=== PATIENT | female | born 1965 | race Caucasian/White ===

== ENCOUNTER 2018-01-19 07:33 | Inpatient (IN) | payer OTHER ==
[~2018-01-19 07:33] MED LIST: EPHEDrine SULFATE 50 MG/5 ML SYG
[2018-01-19] MEDS: SOD CHLORIDE 0.9% 1,000 ML IV ×2 (09:00→15:28)
[2018-01-19] MEDS: CEFAZOLIN 2 GM/50 ML (PMX) 50 ML IVPB (09:00)
[2018-01-19] MEDS: INSULIN ASPART [NOVOLOG] 3 ML PEN SC ×6 (09:53→21:11)
[2018-01-19 09:56] LABS: ADD MAN DIFF? NO
[2018-01-19 09:57] LABS: BASOPHILS % 0.4 % (0.0-2.0); EOSINOPHILS % 0.4 % (0.0-7.0); HEMATOCRIT 40.3 % (37.0-47.0); HEMOGLOBIN 13.9 g/dl (12.0-16.0); LYMPHOCYTES # 0.9 10^3/ul (0.8-2.9); LYMPHOCYTES % 19.2 % (15.0-51.0); MEAN CORPUSCULAR HEMOGLOBIN 30.8 pg (29.0-33.0); MEAN CORPUSCULAR HGB CONC 34.5 g/dl (32.0-37.0); MEAN CORPUSCULAR VOLUME 89.4 fl (82.0-101.0); MEAN PLATELET VOLUME 10.7 fl (7.4-10.4); MONOCYTE # 0.4 10^3/ul (0.3-0.9); NEUTROPHIL # 3.2 10^3/ul (1.6-7.5); NEUTROPHILS % 71.8 % (39.0-77.0); PLATELET COUNT 216 10^3/UL (140-415); RED BLOOD COUNT 4.51 10^6/ul (4.20-5.40); RED CELL DISTRIBUTION WIDTH 11.9 % (11.5-14.5)
[2018-01-19 09:57] LABS: WHITE BLOOD COUNT 4.5 10^3/ul (4.8-10.8)
[2018-01-19] MEDS ORDERED: GLUCAGON 1 MG INJ IM (10:00)
[2018-01-19] MEDS ORDERED: GLUCOSE GEL 15 GRAM TUBE PO ×2 (10:00)
[2018-01-19] MEDS ORDERED: GLUCOSE GEL 15 GRAM TUBE BUCCAL (10:00)
[2018-01-19] MEDS ORDERED: DEXTROSE 50% 50 ML SYRINGE IV ×2 (10:00)
[2018-01-19 10:17] LABS: PROTIME 12.2 Sec (11.9-14.9)
[2018-01-19 10:18] LABS: PARTIAL THROMBOPLASTIN TIME 33.3 Sec (25.0-35.0)
[2018-01-19 10:22] LABS: ALANINE AMINOTRANSFERASE 22 IU/L (13-69); ALBUMIN 3.9 g/dl (3.3-4.9); ALBUMIN/GLOBULIN RATIO 1.14; ALKALINE PHOSPHATASE 115 IU/L (42-121); ANION GAP 19 (8-16); ASPARTATE AMINO TRANSFERASE 19 IU/L (15-46); BILIRUBIN,INDIRECT 0.4 mg/dl (0-1.1); BILIRUBIN,TOTAL 0.4 mg/dl (0.2-1.3); CARBON DIOXIDE 29 mmol/L (21-31); CHLORIDE 99 mmol/L (97-110); GLUCOSE 300 mg/dl (70-220); TOTAL PROTEIN 7.3 g/dl (6.1-8.1)
[2018-01-19 10:29] LABS: BLOOD UREA NITROGEN 13 mg/dl (7-20); CALCIUM 9.3 mg/dl (8.4-10.2); CREATININE 0.57 mg/dl (0.44-1.00); POTASSIUM 4.5 mmol/L (3.5-5.1); SODIUM 142 mmol/L (135-144)
[2018-01-19] MEDS ORDERED: CEFAZOLIN 1 GM INJ (11:48)
[2018-01-19] MEDS ORDERED: PROPOFOL 20 ML (11:48)
[2018-01-19] MEDS ORDERED: ROCURONIUM 50 MG INJ (11:48)
[2018-01-19] MEDS ORDERED: MIDAZOLAM 1 MG/ML 2 ML INJ (11:48)
[2018-01-19] MEDS ORDERED: FENTAnyl 50 MCG/ML VIAL ×2 (11:48→12:50)
[2018-01-19] MEDS ORDERED: PHENYLephrine (100 MCG/ML) 5ML SYG (12:46)
[2018-01-19] MEDS ORDERED: METOCLOPRAMIDE 10 MG INJ (12:48)
[2018-01-19] MEDS ORDERED: DEXAMETHASONE 4 MG/ML 1 ML INJ (12:48)
[2018-01-19] MEDS ORDERED: KETOROLAC 30 MG INJ (12:48)
[2018-01-19] MEDS ORDERED: ONDANSETRON 4 MG INJ (12:48)
[2018-01-19] MEDS ORDERED: SUGAMMADEX SODIUM 200 MG/2 ML VIAL IV (12:49)
[2018-01-19] MEDS ORDERED: HYDROmorphONE (0.2 MG/ML) 10ML SYG IV ×3 (13:08→13:30)
[2018-01-19] MEDS: D5W-0.45 NACL + KCL 20 MEQ 1,000 ML IV (13:20)
[2018-01-19] MEDS ORDERED: EPHEDrine SULFATE 50 MG/5 ML SYG IV (13:30)
[2018-01-19] MEDS ORDERED: LABETALOL HCL 20MG INJ IV (13:30)
[2018-01-19] MEDS ORDERED: FENTAnyl 50 MCG/ML VIAL IV ×3 (13:30)
[2018-01-19] MEDS ORDERED: MEPERIDINE 25 MG INJ IV (13:30)
[2018-01-19] MEDS ORDERED: morphine 2 MG INJ IV (13:30)
[2018-01-19] MEDS ORDERED: DIPHENHYDRAMINE 50 MG INJ IV (13:30)
[2018-01-19] MEDS ORDERED: hydrALAzine 20 MG INJ IV (13:30)
[2018-01-19] MEDS ORDERED: METOCLOPRAMIDE 10 MG INJ IV (13:30)
[2018-01-19] MEDS ORDERED: OXYCODONE/ACETAMINOPHEN (5/325) TAB PO ×2 (13:30)
[2018-01-19] MEDS ORDERED: ACETAMINOPHEN 1000MG/100ML IV 100 ML IVPB (13:30)
[2018-01-19] MEDS: HYDROmorphONE (0.2 MG/ML) 10ML SYG IV ×2 (13:41→13:51)
[2018-01-19] MEDS: ONDANSETRON 4 MG INJ IV (13:59)
[2018-01-19] MEDS: INSULIN GLARGINE [LANtus] 3 ML PEN SC (21:08)
[2018-01-19] MEDS: morphine 2 MG INJ IV (21:13)
[2018-01-20] MEDS: ACCU-CHEK XX (02:00)
[2018-01-20] MEDS: SOD CHLORIDE 0.9% 1,000 ML IV (05:51)
[2018-01-20 06:02] LABS: ADD MAN DIFF? NO
[2018-01-20 06:07] LABS: WHITE BLOOD COUNT 6.2 10^3/ul (4.8-10.8)
[2018-01-20 06:07] LABS: BASOPHILS % 0.3 % (0.0-2.0); EOSINOPHILS % 0.2 % (0.0-7.0); HEMATOCRIT 37.9 % (37.0-47.0); HEMOGLOBIN 12.8 g/dl (12.0-16.0); LYMPHOCYTES # 1.3 10^3/ul (0.8-2.9); LYMPHOCYTES % 21.4 % (15.0-51.0); MEAN CORPUSCULAR HEMOGLOBIN 30.7 pg (29.0-33.0); MEAN CORPUSCULAR HGB CONC 33.8 g/dl (32.0-37.0); MEAN CORPUSCULAR VOLUME 90.9 fl (82.0-101.0); MONOCYTE # 0.5 10^3/ul (0.3-0.9); MONOCYTES % 8.2 % (0.0-11.0); NEUTROPHIL # 4.3 10^3/ul (1.6-7.5); NEUTROPHILS % 69.4 % (39.0-77.0); PLATELET COUNT 216 10^3/UL (140-415); RED BLOOD COUNT 4.17 10^6/ul (4.20-5.40)
[2018-01-20 06:23] LABS: ANION GAP 13 (8-16); BLOOD UREA NITROGEN 8 mg/dl (7-20); CALCIUM 8.3 mg/dl (8.4-10.2); CARBON DIOXIDE 27 mmol/L (21-31); CHLORIDE 106 mmol/L (97-110); CREATININE 0.55 mg/dl (0.44-1.00); GLUCOSE 121 mg/dl (70-220); POTASSIUM 4.6 mmol/L (3.5-5.1); SODIUM 141 mmol/L (135-144)
[2018-01-20] MEDS ORDERED: HYDROCODONE/APAP (5/325) TAB PO (07:00)
[2018-01-20] MEDS: ONDANSETRON 4 MG INJ IV ×2 (07:51→18:49)
[2018-01-20] MEDS: INSULIN ASPART [NOVOLOG] 3 ML PEN SC ×6 (08:00→18:05)
[2018-01-20] MEDS: DULOXETINE 30 MG CAP DR PO (08:39)
[2018-01-20] MEDS: morphine 2 MG INJ IV ×2 (10:08→16:54)
== END 2018-01-20 19:10 | disposition home or self-care (01) | DRG 578 ==
LOC: REC 07:33 → PP2 14:25
PROVIDERS: Surgery Surgical Oncology
PROC: 0HTU0ZZ Resection of Left Breast, Open Approach (ICD-10-PCS; principal; 2018-01-19 11:00)
PROC: 0HX5XZZ Transfer Chest Skin, External Approach (ICD-10-PCS; 2018-01-19 11:00)
DX: C50.912 Malignant neoplasm of unspecified site of left female breast (principal); M06.9 Rheumatoid arthritis, unspecified; Z79.52 Long term (current) use of systemic steroids; E10.9 Type 1 diabetes mellitus without complications; I10 Essential (primary) hypertension; F32.9 Major depressive disorder, single episode, unspecified
CPT/HCPCS: 80048; 80053; 82962; 84703; 85025; 85610; 85730; 88307